=== PATIENT | female | born 1960 | race Asian ===

== ENCOUNTER 2024-05-01 06:12 | Day surgery (SDC) | payer OTHER, SELFPAY ==
[2024-05-01 10:30] VITALS: BMI 23.0
[2024-05-01 10:55] VITALS: BP 122/97
[2024-05-01 10:57] VITALS: BMI 23.0
[2024-05-01 13:42] VITALS: BP 136/96
[2024-05-01 13:45] VITALS: BP 133/89
[2024-05-01 14:00] VITALS: BP 153/99
== END 2024-05-01 14:29 | disposition home or self-care (01) ==
LOC: SDS 06:12
PROVIDERS: ATTENDING PHYSICIAN Internal Medicine Gastroenterology
PROC: 0DBP8ZX Excision of Rectum, Via Natural or Artificial Opening Endoscopic, Diagnostic (ICD-10-PCS; 2024-05-01)
DX: C20 Malignant neoplasm of rectum (principal); K64.0 First degree hemorrhoids
CPT/HCPCS: 45331; 88305; 88342

== ENCOUNTER → 2024-05-16 08:44 | Outpatient (REF) | payer OTHER, SELFPAY | LOC: MRI 3T 08:44 | PROVIDERS: ATTENDING PHYSICIAN Surgery; FAMILY PHYSICIAN Internal Medicine | DX: C20 Malignant neoplasm of rectum (principal) | CPT/HCPCS: 72197; A9575 ==